=== PATIENT | female | born 1950 | race Caucasian/White ===

== ENCOUNTER 2022-01-06 07:38 | Emergency (ER) | payer MEDICARE ==
[~2022-01-06] VITALS: Ht 177.8 cm; Wt 120.5 kg
[2022-01-06 07:44] VITALS: BP 152/80
[2022-01-06] MEDS ORDERED: NIRM1TAB5 PO (09:41)
== END 2022-01-06 10:15 | disposition home or self-care (01) ==
LOC: EMS 07:38
DX: U07.1 COVID-19 (principal); F41.9 Anxiety disorder, unspecified; I10 Essential (primary) hypertension
CPT/HCPCS: 99281; Z7502